=== PATIENT | male | born 1955 | race Caucasian/White ===

== ENCOUNTER 2017-03-28 08:20 | Emergency (ER) | payer BC ==
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
[2017-03-28] MEDS ORDERED: AMPICILLIN SOD IM ONE (10:37)
[2017-03-28] MEDS ORDERED: SULBACTAM IM ONE (10:37)
[2017-03-28] MEDS ORDERED: HYDROCODONE/APAP 7.5/325MG TABLET PO ONE (10:37)
--- NOTE | 2017-03-29 14:25 | RADIOLOGY REPORT ---
EXAM: LEFT WRIST HISTORY: PAIN. TECHNIQUE: Three views of the left wrist were obtained. Comparison: None. Encounter: Initial. FINDINGS: Osteopenia with degenerative changes throughout the hand and wrist. Negative for an acute fracture or dislocation. The soft tissues are unremarkable. IMPRESSION: OSTEOPENIA WITH DEGENERATIVE CHANGE. JOB NUMBER: [id number] [facility]TDD
--- NOTE | 2017-03-29 14:38 | RADIOLOGY REPORT ---
EXAM: RIGHT HAND HISTORY: DOG BITE. TECHNIQUE: Three views of the right hand were obtained. Comparison: None. Encounter: Initial. FINDINGS: Negative for an acute fracture or dislocation. Soft tissue swelling with soft tissue gas over the wrist. No radiopaque foreign body. IMPRESSION: SOFT TISSUE GAS AND SWELLING OF THE WRIST. NEGATIVE FOR FRACTURE. JOB NUMBER: [id number] [facility]TDD
--- NOTE | 2017-03-29 14:42 | RADIOLOGY REPORT ---
EXAM: LEFT HAND HISTORY: INJURY. TECHNIQUE: Three views of the left hand were obtained. Comparison: None. Encounter: Initial. FINDINGS: Probable old injury associated with the scaphoid bone which has a sclerotic appearance. No convincing evidence for an acute fracture or dislocation. There is minimal soft tissue gas with soft tissue swelling of the wrist. Degenerative changes throughout the wrist and hand. No radiopaque foreign body. IMPRESSION: PROBABLE OLD INJURY OF THE SCAPHOID BONE. DEGENERATIVE CHANGES. SOFT TISSUE SWELLING WITH MINIMAL SOFT TISSUE GAS. [facility] [id number] [facility]
--- NOTE | 2017-03-29 14:44 | RADIOLOGY REPORT ---
EXAM: RIGHT FOREARM HISTORY: INJURY. TECHNIQUE: Two views of the right forearm were obtained. Comparison: None. Encounter: Initial. FINDINGS: Negative for an acute fracture or dislocation. Well defined lucency of the distal ulnar metaphysis may relate to old trauma. Soft tissue swelling of the wrist. No radiopaque foreign body. IMPRESSION: SOFT TISSUE SWELLING OF THE WRIST/DISTAL FOREARM. NO ACUTE OSSEOUS ABNORMALITY. J[facility]BER: [id number] [facility]
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
== END 2017-03-28 12:45 | disposition home or self-care (01) ==
LOC: ER 08:20
DX: S66.901A Unspecified injury of unspecified muscle, fascia and tendon at wrist and hand level, right hand, initial encounter (principal); W54.0XXA Bitten by dog, initial encounter
CPT/HCPCS: 96372; 99283; J0295